=== PATIENT | male | born 1980 | race African-American/Black ===

== ENCOUNTER 2021-06-18 09:22 | Emergency (ER) | payer OTHER ==
[~2021-06-18] VITALS: Ht 170.2 cm; Wt 72.0 kg
[2021-06-18 10:51] VITALS: BP 126/77
== END 2021-06-18 11:23 | disposition home or self-care (01) | DRG 605 ==
LOC: ED 09:22
PROC: 0HQ0XZZ Repair Scalp Skin, External Approach (ICD-10-PCS; principal; 2021-06-18)
DX: S01.01XA Laceration without foreign body of scalp, initial encounter (principal); Y00.XXXA Assault by blunt object, initial encounter; Y92.149 Unspecified place in prison as the place of occurrence of the external cause